=== PATIENT | male | born 1995 | race Caucasian/White ===

== ENCOUNTER 2018-07-25 17:59 | Emergency (ER) | payer MEDICAID, SELFPAY ==
[2018-07-25] VITALS (22 sets, daily range): BP systolic 120–156; BP diastolic 39–93; PULSE 61–106; RESP 5–21; TEMP 36.7; O2SAT 94–99
[2018-07-25] MEDS: Normal Saline 1,000 ML 1000 ML IV (18:05)
--- NOTE | 2018-07-25 18:08 | W.ED.GENAD ---
Discharge Plan Disposition Patient Disposition: HOME Condition: Good Discharge Details Chief Complaint: OD/Poison Clinical Impression: Overdose Reason For Visit: PAVEL Primary Care Provider: [facility] ED Provider: [facility] Home Meds and New Rx's Prescriptions: No Action No Known Home Meds RF: 0 Discharge Instructions Instructions: Adult Overdose (ED) Additional Instructions: Please avoid taking any heroin. If you notice any worsening of your symptoms, or any new symptoms such as vomiting, diarrhea, fever, chills, shortness of breath, chest pain, numbness, weakness, or fainting , please return immediately to the emergency department for reevaluation. Please follow up with your primary care provider as soon as possible for reassessment and reevaluation. As always, it was a pleasure participating in your medical care today. Referrals: [facility] MD [Primary Care Provider] - Medical Decision Making This is a 22-year-old male who presents after an unintentional overdose of crushed Percocets. Patient states that he got it from a friend. He denies any other associated drug use. He was found unresponsive by family and friends on the front porch. He had not been out there for a long. He was immediately covered in a blanket, temperature is normal. He was given 2 mg of Narcan by EMS and they noted his O2 sats to be in the high 70s. He came back with normal respirations and mentation shortly after the administration of Narcan. Since then he has been doing well with normal mentation normal oxygen saturations and a normal neurologic exam. We will observe the patient for the next 1-2 hours for any return of his symptoms after the wearing off of Narcan. The patient does not want any additional help or support services at this time. 8:09 PM After a prolonged 2-hour observation. The patient continues to demonstrate no signs of mental changes, decreased respirations, or overdose. At this time with a normal laboratory workup, and only opiates coming up on his UDS, feel that he can be safely discharged home. He already has Narcan at home. We discussed red flags which return the patient understands. Patient still does not want any additional resources at this time. I have extensively reviewed the treatment plan and discharge instructions with the patient and their family. I have addressed all patient concerns at this time. The patient and family was made aware of what symptoms to monitor for that would warrant a return to the emergency department. Discussed the plan with the patient and family, they demonstrate verbal understanding and agreement with our assessment and plan at this time. HPI General Date/Time Provider Initiated Documentation: 07/25/18 18:06. HPI Narrative: This is a 22-year-old male with no significant past medical history who presents today for evaluation of drug overdose. Patient has a history of drug use in the past, but he has not used for the last 3 months. Patient states that a friend of his gave him some crushed Percocets to snore, he snored these on the porch of his family's home, and eventually became unresponsive. He was not in the cold for long and warm blankets were immediately placed over him. EMS was called and when they arrived he was saturating in the 70s, and was blue, and apneic. 2 mg of Narcan were given IM, within minutes the patient returned to normal mental status normal respiratory effort. Patient denies any homicidal or suicidal ideations. He denies any auditory or visual hallucinations. He denies any attempt to harm himself. Drug overdose was recreational and unintended for this consequence. He denies any headache, chest pain, shortness of breath, fever, chills, nausea, vomiting, diarrhea, numbness, tingling, weakness. Patient denies any other modifying or relieving factors. He has no additional complaints at this time. Currently the patient does not want any help or resources from our crisis care team. Patient denies any pertinent family history recent surgical history. Related Data Home Medications Medication Instructions Recorded Confirmed Unknown [No Known Home Meds] 11/22/14 07/25/18 Allergies Allergy/AdvReac Type Severity Reaction Status Date / Time No Known Allergies Allergy Unverified 07/25/18 18:06 General Stated Complaint: OD/Poison BRYANT: 2 Review of Systems Review of Systems All systems reviewed & are unremarkable except as noted in HPI and below PFSH Anxiety Attempted suicide Depression Insomnia Opiate addiction Urinary tract bacterial infections Vision problem Family History Mother Anxiety Father Substance abuse SIBLING Anxiety GRANDPARENT Pediatric hearing loss Neoplasm Other Substance abuse Family History Mother Anxiety Father Substance abuse SIBLING Anxiety GRANDPARENT Pediatric hearing loss Neoplasm Other Substance abuse Medical History Anxiety Attempted suicide Depression Insomnia Opiate addiction Urinary tract bacterial infections Vision problem Social History Smoking/Tobacco Use Status: Current every day Social History Smoking/Tobacco Use Status: Current every day Exam Narrative Exam Narrative: 1.Const: Well-nourished, Well-developed, appearing stated age 2.Eyes: PERRL, no conjunctival injection, and symmetrical lids. 3.ENT: Atraumatic external nose and ears. Moist MM. Neck: Symmetric, trachea midline, No thyromegaly. 4.CVS: +S1/S2, No murmurs or gallops. Peripheral pulses 2+ and equal in all extremities. Brisk capillary refill in all extremities. 5.RESP: Unlabored respiratory effort. Clear to auscultation bilaterally. No wheezes rales or rhonchi 6.GI: Soft, Nontender/Nondistended, No hepatosplenomegaly. No guarding or rebound. 7.MSK: Normocephalic/Atraumatic, Extremities w/o deformity or ttp No cyanosis or clubbing, Normal movement of all extremities 8.Skin: Warm, Dry. No rashes or lesions. 9.Neuro: personal injury legal assistant II-XII grossly intact. Sensation grossly intact, no focal neurologic deficits. 10.Psych: (AAO) x3. Appropriate mood and affect Course Vital Signs Temperature 36.7 C 07/25/18 17:57 Pulse 91 H 07/25/18 17:57 Respiratory Rate 16 07/25/18 17:57 Blood Pressure 156/90 H 07/25/18 17:57 Pulse Oximetry 98 07/25/18 17:57 Temperature 36.7 C 07/25/18 17:57 Temperature Source Skin 07/25/18 17:57 Pulse 91 H 07/25/18 17:57 Respiratory Rate 16 07/25/18 17:57 Blood Pressure 156/90 H 07/25/18 17:57 Blood Pressure Position Sitting 07/25/18 17:57 Pulse Oximetry 98 07/25/18 17:57 Oxygen Delivery Method Room Air 07/25/18 17:57 Oxygen Flow Rate 0 07/25/18 17:57 Pain Level 0 07/25/18 17:57
[2018-07-25 18:18] LABS: Abs Immature Grans 0.01 k/cumm (0.0-0.09); Absolute Basophil Count 0.01 k/cumm (0.0-0.2); Absolute Lymphocyte Count 2.42 k/cumm (1.2-3.4); Absolute Monocyte Count 0.44 k/cumm (0.11-0.7); Basophils % 0.1; Eosinophils % 4.1; HCT 46.9 % (40.0-50.0); HGB 15.9 g/dL (13.5-17.5); Immature Grans % 0.1; Lymphocytes % 32.8; Mean Corp. HGB Concentration 33.9 g/dL (32.0-36.0); Mean Corpuscular Hemoglobin 30.1 pg (27.0-33.0); Mean Corpuscular Volume 88.7 fL (80-95); Mean Platelet Volume 12.7 fL (8.0-11.0); Neutrophils % 56.9; Platelet Count 115 x1000/uL (130-400); RBC 5.29 m/cumm (4.50-6.00); RBC Distribution Width 12.8 % (11.8-14.1); White Blood Cell Count 7.38 k/cumm (4.4-10.8)
[2018-07-25 18:30] LABS: ALT 54 U/L (12-78); AST 21 U/L (15-37); Albumin 4.5 g/dL (3.4-5.0); Alkaline Phosphatase 68 U/L (46-116); BUN 18 mg/dL (7-18); Bilirubin, Total 0.3 mg/dL (0.2-1.0); CREATININE 1.11 mg/dL (0.70-1.30); Calcium 9.3 mg/dL (8.5-10.1); Chloride 101 mmol/L (98-107); Glucose 188 mg/dL (70-100); Potassium 3.5 mmol/L (3.5-5.1); Sodium 140 mmol/L (136-145)
[2018-07-25 19:40] LABS: *AMPHETAMINES SCREEN URINE Negative (Negative); *BARBITURATES SCREEN URINE Negative (Negative); *BENZODIAZEPINES SCREEN URINE Negative (Negative); Cannabinoids THC POSITIVE (Negative); Cocaine Screen,Urine Negative (Negative); METHADONE URINE SCREEN Negative (Negative); OPIATES URINE SCREEN POSITIVE (Negative)
[2018-07-25 19:42] LABS: Tricyclic Antidepressants Negative (Negative)
== END 2018-07-25 21:05 | disposition home or self-care (01) ==
PROVIDERS: Emergency Provider Student in an Organized Health Care Education/Training Program; PCP Pediatrics
DX: T40.601A Poisoning by unspecified narcotics, accidental (unintentional), initial encounter (principal); R09.02 Hypoxemia; F11.10 Opioid abuse, uncomplicated
CPT/HCPCS: 36415; 80053; 80307; 96360; 99284; 85025

== ENCOUNTER 2019-05-17 15:30 | Observation (INO) | payer MEDICAID, SELFPAY ==
[2019-05-17 15:37] VITALS: BP 126/67; PULSE 60; RESP 16; TEMP 36.8; O2SAT 97
[2019-05-17] MEDS: Acetaminophen 500 MG TAB 1000 MG PO (16:40)
[2019-05-17 16:53] LABS: Absolute Basophil Count 0.01 k/cumm (0.0-0.2); Absolute Eosinophil Count 0.13 k/cumm (0.0-0.7); Absolute Monocyte Count 0.66 k/cumm (0.11-0.7); Absolute Neutrophil Count 4.51 k/cumm (1.2-6.7); Basophils % 0.2; HCT 44.8 % (40.0-50.0); HGB 15.1 g/dL (13.5-17.5); Lymphocytes % 18.4; Mean Corp. HGB Concentration 33.7 g/dL (32.0-36.0); Mean Corpuscular Hemoglobin 29.5 pg (27.0-33.0); Mean Corpuscular Volume 87.5 fL (80-95); Monocytes % 10.1; Neutrophils % 69.3; Platelet Count 132 x1000/uL (130-400); RBC 5.12 m/cumm (4.50-6.00); RBC Distribution Width 12.9 % (11.8-14.1); White Blood Cell Count 6.51 k/cumm (4.4-10.8)
[2019-05-17] MEDS: Ondansetron O.D.T. 4 MG TABEF PO (17:06)
[2019-05-17] MEDS: diphenhydrAMINE 25 MG CAP 50 MG PO (17:06)
[2019-05-17 17:12] LABS: ALT 21 U/L (16-63); AST 19 U/L (15-37); Albumin 4.1 g/dL (3.4-5.0); Alkaline Phosphatase 66 U/L (46-116); Anion Gap 8.2 mmol/L (3-11); BUN 12 mg/dL (7-18); Bilirubin, Total 0.8 mg/dL (0.2-1.0); CO2 27.8 mmol/L (21.0-32.0); Calcium 9.1 mg/dL (8.5-10.1); Chloride 104 mmol/L (98-107); Glucose 106 mg/dL (70-100); Potassium 3.7 mmol/L (3.5-5.1); Sodium 140 mmol/L (136-145); Total Protein 7.4 g/dL (6.4-8.2)
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
[2019-05-17 18:55] VITALS: BP 125/58; PULSE 56; RESP 16; O2SAT 98
[2019-05-17] MEDS: cloNIDine 0.1 MG TAB PO (19:00)
[2019-05-17 19:21] LABS: *AMPHETAMINES SCREEN URINE Negative (Negative); *BARBITURATES SCREEN URINE Negative (Negative); *BENZODIAZEPINES SCREEN URINE Negative (Negative); Cannabinoids THC POSITIVE (Negative); Cocaine Screen,Urine POSITIVE (Negative); METHADONE URINE SCREEN Negative (Negative); OPIATES URINE SCREEN Negative (Negative); Tricyclic Antidepressants Negative (Negative)
--- NOTE | 2019-05-17 20:22 | PDOC.CMSAFED ---
- If Service Date Differs Date of service: 05/17/19 Time of Service: 20:22 Care Management Safety Plan Jagdish is a 23 year old young man who presented to [facility] ED today with suicidal thoughts and depression. He has been opiate dependent since the age of 18. He was clean for 2 years then relapsed last year. Jagdish states he is done with life but does not have any active suicide plan or intent to harm himself. He has not been seeing a therapist nor has he been in any drug rehab programs. He is not currently on any medications. Three years ago he spent time at [facility] and was placed on medication but stopped it after discharge. Jagdish is currently homeless. Jagdish is seeking voluntary placement for opiate detoxification. He is concerned that he is beginning to withdraw and is requesting medication. He has been seen by mental health [facility] and a referral has been sent to and accepted by [facility] . Transfer tonight is not possible. CM facilitated interdepartmental huddle with [facility] screener for safety planning considerations and met with patient to review [facility] policy and safety plan, establish individual wishes for treatment and maintain patient rights. Huddle participants: Madai [facility], Mary [place], Hina SMART, Vaishnavi Ahuja, provider. SAFETY PLAN: 1. Will remain on suicide precautions and in paper clothes. 2. Will remain in room under direct supervision of one-on-one staff at all times provided by ABIEL, PIPELINE MAINTENANCE SUPERVISOR car supervisor. 3. May have paper cups, plates, finger foods as well as a cardboard spoon with which to eat meals. 4. Follow [facility] Management of the Admitted Behavioral Health Patient policy. 5. Comfort bath system only. 6. May keep cell phone 7. Parents may visit. 8. Due to VOLUNTARY status, if patient wishes to leave [facility], the [facility] farmworker fur must be contacted to re-evaluate patient prior to patient exiting the building.
[2019-05-17] MEDS: Ketorolac 60 MG/2 ML VIAL IM (21:32)
[2019-05-17] MEDS: LORazepam 1 MG TAB PO (21:33)
--- NOTE | 2019-05-17 21:35 | NUR.NOTE ---
Nursing Note:Food tray ordered at this time.
[2019-05-18 00:10] VITALS: BP 96/55; PULSE 59; RESP 16; TEMP 36.4; O2SAT 97
[2019-05-18 03:45] VITALS: BP 94/50; PULSE 70; RESP 16; TEMP 36.6; O2SAT 98
[2019-05-18 10:00] VITALS: BP 111/63; PULSE 62; RESP 16; TEMP 36.6; O2SAT 97
[2019-05-18] MEDS: Ketorolac 10 MG TAB PO (12:59)
[2019-05-18] MEDS: LORazepam 0.5 MG TAB PO (13:06)
--- NOTE | 2019-05-18 15:21 | PDOC.CMPRO ---
- If Service Date Differs Date of service: 05/18/19 Time of Service: 15:21 Care Management Progress Note S/O; CM met with patient at the bedside his mother and father are present. Jagdish does not want to stay at [facility] he states he is not suicidal and only wants substance abuse treatment. Jagdish states he has been using Percocet 30's, and Fentanyl, he denies use of Cocaine. Jagdish was tearful during assessment with CM states he wants to leave AMA. His father Jose states he cant keep going through this with Jagdish and this is their last effort to help him abstain from substances. Jagdish does not want to return to he states it was not helpful to him last time. He feels that a rehab for substance abuse would be more beneficial to him. He was willing to meet with recovery unit operator and contact [facility] prior to discharge CM coordinated recovery unit operator meeting and an intake with Fredi Das. Per intake there is not currently a waiting list for . Per Alberto in intake they should be able to call Jagdish with a bed in the next 48 hours. Plan is for the recovery unit operator to check in daily with Jagdish by phone until he obtains a bed at . [facility] Linda also provided information for [facility]. Jagdish states he felt comfortable with Linda the Pickle Maker and would reach out to her if needed. CM contacted mental health to and provided update that patient was leaving AMA. Per [place] [facility] at [facility] patient is Voluntary and can leave AMA. CM notified primary nurse and provider of situation. CM reviewed the risk of leaving AMA with the patient he states he can not stay here and that he is not suicidal. He states he is staying with friends that are supportive and that he will be okay. A:Jagdish is a 23 year old male that was admitted with SI and substance abuse awaiting placement at facility. P:Jagdish is leaving AMA. He contacted [facility]i Das completed the intake assessment. He met with recovery unit operator and will receive daily support with the community service. Jagdish was also provided contact information for [facility] program. Jagdish arranged his own transportation prior to leaving [facility].
--- NOTE | 2019-05-18 15:34 | W.PM.DS.N ---
Date of service: 05/18/19 Time of Service: 15:34 DS: Diagnosis Discharge Diagnosis (1) Suicide ideation: Status: Acute (2) Withdrawal from opioids: Status: Acute (3) Opioid abuse: Status: Chronic Discharge Plan Disposition Patient Disposition: AGAINST MEDICAL ADVICE Condition: Fair Discharge Details Chief Complaint: PsychEval Reason For Visit: SUICIDAL IDEATION, OPIOID ABUSE WITH WITHDRAWALS Admit Date/Time: 05/17/19 18:42 Admit Provider: Bharath Perez Attending Provider: Bharath Perez Primary Care Provider: [facility] Provider: Vaishnavi Ahuja Hospital Course Hospital Course: Patient left AMA with a plan to go to a friends house and shoot up crack. Anxious and depressed. Home Meds and New Rx's Prescriptions: No Action No Known Home Meds RF: 0 Discharge Instructions Diet:: As Tolerated Discharge Data Discharge Date/Time-TO BE ENTERED AT DEPARTURE: 05/18/19 15:06 DS: Summary Status at Discharge Functional status at discharge: independent ambulation Overall status at discharge: patient is not back to baseline Mental Status: other Speech and Movement: agitated Mood: anxious mood and other Affect: anxious affect Exam Psych Mental Status: other Speech and Movement: agitated Mood: anxious mood and other Affect: anxious affect DS: Data Vitals/I&O Vitals and I&O: Vital Signs Temperature 36.6 C 05/18/19 10:00 Temperature Source Temporal Artery Scan 05/18/19 10:00 Pulse 62 05/18/19 10:00 Pulse Rhythm Regular 05/18/19 10:00 Respiratory Rate 16 05/18/19 10:00 Respiratory Effort 05/18/19 10:00 Respiratory Depth Normal 05/18/19 10:00 Respiratory Pattern Normal 05/18/19 10:00 Blood Pressure 111/63 05/18/19 10:00 Blood Pressure Position Sitting 05/17/19 15:37 Pulse Oximetry 97 05/18/19 10:00 Oxygen Delivery Method Room Air 05/18/19 10:00 Oxygen Flow Rate 0 05/18/19 10:00 Pain Level 5 05/18/19 13:00 Comment 05/18/19 03:45 Intake & Output 05/17/19 05/18/19 05/18/19 23:59 11:59 23:59 Intake Total 425 / 425 Output Total 400 / 400 Balance -400 / -400 425 / 425 Weight 71.7 kg 69.2 kg Intake: Oral 425 / 425 Output: Urine 400 / 400 Data Completed and Pending Labs on day of discharge: Labs from last 24 hours 05/17/19 05/17/19 05/17/19 18:50 16:43 16:43 WBC 6.51 RBC 5.12 Hgb 15.1 Hct 44.8 MCV 87.5 MCH 29.5 MCHC 33.7 RDW 12.9 Plt Count 132 MPV 13.0 H Immature Gran % 0.0 Neutrophils % 69.3 Lymphocytes % 18.4 Monocytes % 10.1 Eosinophils % 2.0 Basophils % 0.2 Absolute Neutrophils 4.51 Absolute Lymphocytes 1.20 Absolute Monocytes 0.66 Absolute Eosinophils 0.13 Absolute Basophils 0.01 Sodium 140 Potassium 3.7 Chloride 104 Carbon Dioxide 27.8 Anion Gap 8.2 BUN 12 Creatinine 1.20 Estimated GFR/1.73 m2 >= 60.00 Glucose 106 H Calcium 9.1 Total Bilirubin 0.8 AST 19 ALT 21 Alkaline Phosphatase 66 Total Protein 7.4 Albumin 4.1 Urine Opiates Screen Negative Urine Methadone Screen Negative Ur Barbiturates Screen Negative Ur Tricyclics Screen Negative Ur Amphetamines Screen Negative U Benzodiazepines Scrn Negative Urine Cocaine Screen Positive A Ur THC Screen Positive A [facility] Medical History Anxiety Attempted suicide Depression Insomnia Opiate addiction Urinary tract bacterial infections Vision problem Family History Mother Anxiety Father Substance abuse [place] Anxiety GRANDPARENT Pediatric hearing loss Neoplasm Other Substance abuse Social History Smoking/Tobacco Use Status: Current every day Tobacco Type: cigarettes Drug use: Daily Substance use type: marijuana, heroin, opiates and painkillers Do you feel safe in your relationship?: Yes
== END 2019-05-18 15:06 | disposition left against medical advice (07) ==
LOC: ER 17:29 → MS 05-18 01:28
PROVIDERS: Admitting Provider Family Medicine; Emergency Provider Physician Assistant; PCP Pediatrics; Visit Provider Internal Medicine
DX: R45.851 Suicidal ideations (principal); F11.23 Opioid dependence with withdrawal; Z53.29 Procedure and treatment not carried out because of patient's decision for other reasons; Z60.8 Other problems related to social environment; Z81.1 Family history of alcohol abuse and dependence; F17.210 Nicotine dependence, cigarettes, uncomplicated; F41.9 Anxiety disorder, unspecified
CPT/HCPCS: 80053; 80307; 99219; 99239; 99285; 85025; 99217; 99284; G0378; J1885

== ENCOUNTER → 2022-06-20 02:28 | Outpatient (CLI) | payer MEDICAID, SELFPAY ==
--- NOTE | 2022-06-20 07:45 | DI.RAD_ITS ---
Exam(s) XR LUMBAR SPINE COMPLETE EXAM: XR LUMBAR SPINE COMPLETE CLINICAL HISTORY: chronic LOW BACK PAIN, M54.50 TECHNIQUE: COMPARISON: CR LUMBAR SPINE COMPLETE from 09/01/2015 FINDINGS: Five views were obtained. There are mild degenerative changes of the SI joints bilaterally. There i s loss of height of intervertebral disc space at the L5-S1 level. There is some sclerosis of the amanda tebral endplates at this level and there is a chronic defect of the anterior inferior aspect of L5 ve rtebral body grossly unchanged from prior radiographs of August 2015. No other bony or soft tissue abnormality seen. No evidence of spondylolysis or spondylolisthesis. IMPRESSION: Stable appearance of L5-S1 level as described above. Disc space loss of height is consistent with de generative change. RADIATION DOSE DELIVERED: Total DLP
== END ==
PROVIDERS: PCP Nurse Practitioner; Visit Provider Nurse Practitioner
DX: G89.29 Other chronic pain (principal); M54.50 Low back pain, unspecified; M47.817 Spondylosis without myelopathy or radiculopathy, lumbosacral region
CPT/HCPCS: 72110

== ENCOUNTER 2023-02-27 21:26 | Outpatient (REF) | payer MEDICAID, SELFPAY ==
[2023-02-28 10:07] LABS: Lyme Ab w Rflx to Lyme Confirm Negative (Negative)
[2023-03-02 17:48] LABS: Anaplasma phagocytophilum Negative (Negative); B. miyamotoi PCR Negative (Negative); Babesia divergens/MO-1 Negative (Negative); Babesia duncani Negative (Negative); Babesia microti Negative (Negative); Ehrlichia chaffeensis Negative (Negative); Ehrlichia ewingii/canis Negative (Negative); Ehrlichia muris eauclairensis Negative (Negative)
== END 2023-02-27 21:27 | disposition home or self-care (01) ==
LOC: LBN 21:26
PROVIDERS: PCP Nurse Practitioner; Visit Provider Physician Assistant Medical
DX: J11.1 Influenza due to unidentified influenza virus with other respiratory manifestations (principal)
CPT/HCPCS: 87798; 86618

== ENCOUNTER 2023-04-26 21:35 | Outpatient (CLI) | payer MEDICAID, SELFPAY ==
[2023-04-29 11:32] LABS: Lyme Ab w Rflx to Lyme Confirm Positive (Negative)
[2023-04-30 11:09] LABS: Lyme IgG Ab Negative (Negative); Lyme IgM Ab Positive (Negative)
[2023-05-01 08:06] LABS: Anaplasma phagocytophilum Negative (Negative); B. miyamotoi PCR Negative (Negative); Babesia divergens/MO-1 Negative (Negative); Babesia duncani Negative (Negative); Babesia microti Negative (Negative); Ehrlichia chaffeensis Negative (Negative); Ehrlichia ewingii/canis Negative (Negative); Ehrlichia muris eauclairensis Negative (Negative)
== END 2023-04-26 21:36 | disposition home or self-care (01) ==
LOC: LBO 21:35
PROVIDERS: PCP Nurse Practitioner; Visit Provider Family Medicine
DX: W57.XXXA Bitten or stung by nonvenomous insect and other nonvenomous arthropods, initial encounter (principal); T14.90XA Injury, unspecified, initial encounter
CPT/HCPCS: 36415; 86617; 87798; 86618

== ENCOUNTER 2023-06-21 16:38 | Outpatient (REF) | payer MEDICAID, SELFPAY ==
[2023-06-21 20:46] LABS: Source Nasal/Nares
[2023-06-21 21:19] LABS: ALT 30 U/L (16-63); AST 26 U/L (15-37); Albumin 4.6 g/dL (3.4-5.0); Alkaline Phosphatase 59 U/L (46-116); Anion Gap 10.6 mmol/L (3-11); BUN 13 mg/dL (7-18); Bilirubin, Total 0.7 mg/dL (0.2-1.0); CO2 28.4 mmol/L (21.0-32.0); CREATININE 1.1 mg/dL (0.70-1.30); Calcium 9.8 mg/dL (8.5-10.1); Chloride 104 mmol/L (98-107); Estimated GFR 94.95 (mL/min/1.73m2); Glucose 133 mg/dL (74-106); Potassium 3.8 mmol/L (3.5-5.1); Sodium 143 mmol/L (136-145); Total Protein 7.5 g/dL (6.4-8.2)
[2023-06-21 21:23] LABS: Abs Immature Grans 0.02 10^3/uL (0.0-0.06); Absolute Basophil Count 0.02 10^3/uL (0.0-0.2); Absolute Eosinophil Count 0.04 10^3/uL (0.0-0.7); Absolute Lymphocyte Count 1.45 10^3/uL (1.2-3.4); Absolute Monocyte Count 0.76 10^3/uL (0.1-0.8); Basophils % 0.2; Eosinophils % 0.5; HCT 46.7 % (40.0-50.0); HGB 15.7 g/dL (13.5-17.5); Immature Grans % 0.2; Lymphocytes % 16.5; MCH 29.4 pg (27.0-33.0); MCHC 33.6 % (32.0-36.0); MCV 88 fL (80-95); Monocytes % 8.6; Platelet Count 121 10^3/uL (130-400); RBC 5.34 10^6/uL (4.36-5.78); RDW-SD 41.7 fL; WBC 8.79 10^3/uL (4.4-10.8)
[2023-06-21 21:43] LABS: COVID-19 PCR Negative (Negative)
[2023-06-24 10:41] LABS: Lyme Ab w Rflx to Lyme Confirm Negative (Negative)
[2023-06-26 00:42] LABS: Anaplasma phagocytophilum Negative (Negative); B. miyamotoi PCR Negative (Negative); Babesia divergens/MO-1 Negative (Negative); Babesia duncani Negative (Negative); Babesia microti Negative (Negative); Ehrlichia chaffeensis Negative (Negative); Ehrlichia ewingii/canis Negative (Negative); Ehrlichia muris eauclairensis Negative (Negative)
== END 2023-06-21 16:39 | disposition home or self-care (01) ==
LOC: LBN 16:38
PROVIDERS: PCP Nurse Practitioner; Visit Provider Physician Assistant Medical
DX: J02.9 Acute pharyngitis, unspecified (principal); R10.30 Lower abdominal pain, unspecified; W57.XXXA Bitten or stung by nonvenomous insect and other nonvenomous arthropods, initial encounter
CPT/HCPCS: 80053; 87635; 87798; 85025; 86618; 87070

== ENCOUNTER → 2023-06-24 02:38 | Outpatient (CLI) | payer MEDICAID, SELFPAY ==
--- NOTE | 2023-06-24 | DI.CT_ITS ---
Exam(s) CT ABDOMEN PELVIS W EXAM: CT ABDOMEN PELVIS W CLINICAL HISTORY: RT LOWER ABD PAIN, R10.30, RADIATES TO TESTICLES. TECHNIQUE: Imaging Protocol: Axial computed tomography images with coronal and sagittal reformatted images were created and reviewed CONTRAST MATERIAL: Intravenous: Omnipaque 350 Contrast volume:100 ml Oral: yes COMPARISON: No exams were available for comparison FINDINGS: ABDOMEN and PELVIS: Lung Bases: Normal where visualized. Contrast and subcu gas consistent with reflux. Liver: Normal density. No measurable mass. Gallbladder and biliary tract: No radiodense calculus or dilation. Pancreas: Normal density. No abnormal calcifications or inflammatory process. No evidence of mass. Spleen: Normal. Kidneys: Normal size, contour and axis. Tiny nonobstructing stone lower pole left kidney. No obstru ctive uropathy. No suspicious masses seen. Adrenal glands: No masses seen. Vasculature: Abdominal aorta non-dilated. Soft tissues: Unremarkable. Bladder: No gross wall thickening. No calculi.No focal mass. Bowel: No obstruction. No bowel wall thickening. Appendix normal.Normal quantity of stool. Peritoneal cavity: No ascites. No focal collection or mesenteric inflammatory response. Bones: On degenerative changes at L5-S1. Chronic appearing deformity of the anterior inferior endpla te of L5. Reproductive organs: Within normal limits. Lymph nodes: Unremarkable. IMPRESSION:: Tiny nonobstructing stone lower pole left kidney. No hydronephrosis. Appendix is norm al. RADIATION DOSE DELIVERED: Total DLP DATA REPOSITORY: All CT scans at this facility are submitted to the National Radiology Data Registry (NRDR) Dose Index Registry (DIR) with the [employer] ([employer]). RADIATION OPTIMIZATION: All CT scans at this facility use at least one of these dose optimization te chniques: automated exposure control; mA and/or kV adjustment per patient size (includes targeted exa ms where dose is matched to clinical indication); or iterative reconstruction.
[2023-06-24] MEDS: Barium Sulfate 2% W/V-Creamy Vanilla Smoothie 450 ML BTL 900 ML PO (11:29)
[2023-06-24] MEDS: Normal Saline - Diluent 50 ML VIAL IJ (13:38)
[2023-06-24] MEDS: Omnipaque 350 MG/ML 100 ML BTL IJ (13:38)
[2023-06-24] MEDS: Normal Saline Flush 10 ML SYR IVP (13:39)
== END ==
PROVIDERS: PCP Nurse Practitioner; Visit Provider Physician Assistant Medical
DX: R10.30 Lower abdominal pain, unspecified (principal); N20.0 Calculus of kidney
CPT/HCPCS: 74177; J3490

== ENCOUNTER → 2023-07-12 01:44 | Outpatient (CLI) | payer MEDICAID, SELFPAY ==
--- NOTE | 2023-07-12 07:45 | DI.US_ITS ---
Exam(s) US SCROTUM EXAM: US SCROTUM CLINICAL HISTORY: low pelvic and testicuLAR PAIN,N50.819. TECHNIQUE: Scrotal ultrasound performed using grayscale, color-flow and spectral Doppler analysis. COMPARISON: No exams were available for comparison FINDINGS: Right testicle: 5.2 x 2.3 x 3.5 cm Echogenicity: Normal. Contour: Smooth. Mass: None seen. Microlithiasis: None. Hydrocele: There is a small hydrocele measuring 3.8 x 0.6 x 3.5 cm. Variocele: None. Hernia: No peristalsing bowel loop identified. Epididymis: Normal. Left testicle: 4.6 x 2 x 3 cm Echogenicity: Normal. Contour: Smooth. Mass: None seen. Microlithiasis: None. Hydrocele: There is a small hydrocele measuring 3 x 1.7 x 3 cm. Variocele: None. Hernia: No peristalsing bowel loop identified. Epididymis: There is a 5 mm spermatocele. DOPPLER: Color: Symmetric and uniform, no hyperemia. IMPRESSION: 1. Normal appearing bilateral testicles. 2. Small bilateral hydroceles. 3. No evidence of a inguinal hernia sonographically. DATA REPOSITORY:
== END ==
PROVIDERS: PCP Nurse Practitioner; Visit Provider Nurse Practitioner
DX: N43.42 Spermatocele of epididymis, multiple (principal)
CPT/HCPCS: 76870